=== PATIENT | male | born 1960 | race Caucasian/White ===

== ENCOUNTER 2016-06-11 19:22 | Inpatient (IN) | payer OTHER, MEDICARE ==
[~2016-06-11] VITALS: Ht 175.3 cm; Wt 117.0 kg
[~2016-06-11 19:22] MED LIST: ASPI-110 PO; COZA100T PO; FENO145T2 PO; GABA100C4 PO; NAPR550T3 PO; OXYC-395 PO; SOMA350T PO; ZOLP10TA3 PO
[2016-06-11 19:23] VITALS: BP 134/85; PULSE 94; RESP 20; TEMP 98.1; O2SAT 97
[2016-06-11] MEDS ORDERED: SODIUM CHLOR 0.9% 1000 ML INJ 1,000 ML IV SCH (20:24)
[2016-06-11] MEDS ORDERED: SODIUM CHLORIDE 0.9% FLUSH 5 ML FLUSH IVF PRN (20:30)
[2016-06-11] MEDS ORDERED: ONDANSETRON HCL 4 MG/2 ML VIAL IVP ONE (20:30)
[2016-06-11] MEDS ORDERED: HYDROmorphone HCL PF 1 MG/ML VIAL IM ONE (20:30)
--- NOTE | 2016-06-11 20:32 | PD ---
HPI Chief Complaint: Flank/Kidney Pain Time Seen by Provider: 20:22 Travel History International Travel<30 days: No Contact w/Intl Traveler<30days: No Traveled to known affect area: No History of Present Illness HPI 56-year-old male here for evaluation of left flank pain that started about 3 hours ago. The patient reports history of kidney stones and believes he may be passing a kidney stone today. Pain is sharp, severe, radiates to his left lower abdomen, constant, associated with nausea and vomiting. No hematuria or dysuria. No fevers or chills. History of appendectomy and umbilical hernia repair. PFSH Past Medical History Arthritis: No Asthma: No Autoimmune Disease: No Blood Disorders: No Heart Rhythm Problems: No Cancer: No Cardiovascular Problems: Yes (HTN) High Cholesterol: Yes Chemotherapy: No Chest Pain: No Congestive Heart Failure: No COPD: No Cerebrovascular Accident: No Diminished Hearing: No Endocrine: No Gastrointestinal Disorders: No GERD: No Glaucoma: No Genitourinary: No Headaches: No Hepatitis: No Hiatal Hernia: No Hypertension: Yes Immune Disorder: No Kidney Stones: No Musculoskeletal: Yes Neurologic: No Psychiatric: No Reproductive: No Respiratory: No Migraines: No Myocardial Infarction: No Radiation Therapy: No Renal Failure: No Seizures: No Sickle Cell Disease: No Sleep Apnea: No Ulcer: No Tetanus Vaccination: < 5 Years Past Surgical History Abdominal Surgery: Yes (HERNIA REPAIR) AICD: No Appendectomy: Yes Arteriovenous Shunt: No Body Medical Devices: CAGES IN BACK Cardiac Surgery: No Cholecystectomy: No Ear Surgery: No Endocrine Surgery: No Eye Surgery: No Genitourinary Surgery: No Gynecologic Surgery: No Insulin Pump: No Joint Replacement: No Oral Surgery: Yes Pacemaker: No Thoracic Surgery: No Other Surgery: Yes Social History Alcohol Use: Yes (2 DRINKS WEEKLY) Tobacco Use: No Substance Use: No Allergies-Medications (Allergen,Severity, Reaction): Coded Allergies: No Known Allergies (Verified , 06/11/16) Reported Meds & Prescriptions Reported Meds & Active Scripts Active Naproxen Sodium DS (Naproxen Sodium) 550 Mg Tab 550 Mg PO BID Reported Aspirin 81 (Aspirin) 81 Mg Tabdr 81 Mg PO DAILY Fenofibrate 145 Mg Tab 145 Mg PO HS Soma (Carisoprodol) 350 Mg Tab 350 Mg PO BID PRN Oxycodone (Oxycodone HCl) 10 Mg Tab 10 Mg PO Q6H PRN Zolpidem (Zolpidem Tartrate) 10 Mg Tab 10 Mg PO HS PRN Gabapentin 100 Mg Cap 400 Mg PO TID Cozaar (Losartan Potassium) 100 Mg Tab 100 Mg PO DAILY Review of Systems Except as stated in HPI: all other systems reviewed are Neg Physical Exam Narrative GENERAL: Well-developed, well-nourished, overweight, writhing in bed. SKIN: Warm and dry. No rash. HEAD: Atraumatic. Normocephalic. EYES: Pupils equal and round. No scleral icterus. No injection or drainage. ENT: Mucous membranes pink and moist. NECK: Trachea midline. No JVD. CARDIOVASCULAR: Regular rate and rhythm. RESPIRATORY: No accessory muscle use. Clear to auscultation. Breath sounds equal bilaterally. GASTROINTESTINAL: Abdomen soft, non-tender, nondistended. MUSCULOSKELETAL: No obvious deformities. No clubbing. No cyanosis. No edema. No midline vertebral step-off or tenderness. There is left CVA tenderness. No right CVA tenderness. NEUROLOGICAL: Awake and alert. No obvious cranial nerve deficits. Motor grossly within normal limits. Normal speech. PSYCHIATRIC: Appropriate mood and affect; insight and judgment normal. Data Data Last Documented VS Vital Signs Date Time Temp Pulse Resp B/P Pulse Ox O2 Delivery O2 Flow Rate FiO2 06/11/16 20:37 98 Room Air 06/11/16 19:23 98.1 94 20 134/85 Orders Urinalysis - C+S If Indicated (06/11/16 19:38) Complete Blood Count With Diff (06/11/16 20:24) Comprehensive Metabolic Panel (06/11/16 20:24) Prothrombin Time / Inr (Pt) (06/11/16 20:24) Act Partial Throm Time (Ptt) (06/11/16 20:24) Ct Abd/Pel W/O Iv Contrast (06/11/16 20:24) Iv Access Insert/Monitor (06/11/16 20:24) Ecg Monitoring (06/11/16 20:24) Oximetry (06/11/16 20:24) Ondansetron Inj (Zofran Inj) (06/11/16 20:30) Sodium Chlor 0.9% 1000 Ml Inj (Ns 1000 M (06/11/16 20:24) Sodium Chloride 0.9% Flush (Ns Flush) (06/11/16 20:30) Hydromorphone Pf Inj (Dilaudid Pf Inj) (06/11/16 20:30) Hydromorphone Pf Inj (Dilaudid Pf Inj) (06/11/16 21:00) Ketorolac Inj (Toradol Inj) (06/11/16 21:45) Tamsulosin (Flomax) (06/11/16 21:45) Hydromorphone Pf Inj (Dilaudid Pf Inj) (06/11/16 22:15) Labs Laboratory Tests Test 06/11/16 06/11/16 20:00 20:35 Urine Color YELLOW Urine Turbidity HAZY Urine pH 5.0 Urine Specific [place] 1.026 Urine Protein TRACE mg/dL Urine Glucose (UA) NEG mg/dL Urine Ketones NEG mg/dL Urine Occult Blood LARGE Urine Nitrite NEG Urine Bilirubin NEG Urine Urobilinogen LESS THAN 2.0 MG/DL Urine Leukocyte Esterase NEG Urine RBC /hpf Urine WBC 1 /hpf Urine Squamous Epithelial <1 /hpf Cells Microscopic Urinalysis Comment CULT NOT INDICATED White Blood Count 11.9 TH/MM3 Red Blood Count 4.87 MIL/MM3 Hemoglobin 13.9 GM/DL Hematocrit 40.9 % Mean Corpuscular Volume 84.1 FL Mean Corpuscular Hemoglobin 28.6 PG Mean Corpuscular Hemoglobin 34.0 % Concent Red Cell Distribution Width 13.9 % Platelet Count 259 TH/MM3 Mean Platelet Volume 7.6 FL Neutrophils (%) (Auto) 75.9 % Lymphocytes (%) (Auto) 16.6 % Monocytes (%) (Auto) 6.0 % Eosinophils (%) (Auto) 0.9 % Basophils (%) (Auto) 0.6 % Neutrophils # (Auto) 9.0 TH/MM3 Lymphocytes # (Auto) 2.0 TH/MM3 Monocytes # (Auto) 0.7 TH/MM3 Eosinophils # (Auto) 0.1 TH/MM3 Basophils # (Auto) 0.1 TH/MM3 CBC Comment DIFF FINAL Differential Comment Prothrombin Time 11.1 SEC Prothromb Time International 1.0 RATIO Ratio Activated Partial 25.2 SEC Thromboplast Time Sodium Level 141 MEQ/L Potassium Level 4.1 MEQ/L Chloride Level 107 MEQ/L Carbon Dioxide Level 25.2 MEQ/L Anion Gap 9 MEQ/L Blood Urea Nitrogen 23 MG/DL Creatinine 1.21 MG/DL Estimat Glomerular Filtration 62 ML/MIN Rate Random Glucose 130 MG/DL Calcium Level 8.6 MG/DL Total Bilirubin 0.2 MG/DL Aspartate Amino Transf 18 U/L (AST/SGOT) Alanine Aminotransferase 37 U/L (ALT/SGPT) Alkaline Phosphatase 66 U/L Total Protein 7.7 GM/DL Albumin 4.2 GM/DL MDM Medical Decision Making Medical Screen Exam Complete: Yes Emergency Medical Condition: Yes Differential Diagnosis Nephrolithiasis, ureterolithiasis, pyelonephritis, dissection, AAA, diverticulitis Narrative Course Vital signs show heart rate 94, pressure 134/85, pulse ox 97% on room air, oral temp of 98.1F. CBC is unremarkable. CMP is remarkable for BUN 23, cranny 1.20, GFR 62, random glucose 1:30, otherwise unremarkable. UA shows hazy urine, large occult blood, not suggestive of UTI. CT abdomen pelvis: CONCLUSION: 1. 3 mm stone in the proximal left ureter at the level of L3/L4 causing mild to moderate acute obstructive uropathy. I don't clearly see the calculus on the initial microsoft dynamics developer radiograph 2. Fatty liver again noted. The patient was initially given IM Dilaudid 1 mg after my assessment and given a dose of IV Dilaudid 1 mg after IV was established. He was still complaining of significant pain. He was then given IV Toradol with some improvement in pain. He was given another dose of IV Dilaudid 1 mg. Patient was also given a dose of Flomax. He still feeling a moderate amount of pain in his left flank. Given intractable pain, he'll be admitted for overnight observation. Case discussed with [facility] hospitalist EMILY Lobo. The patient will be admitted to their service under Dr. Israel. Diagnosis Primary Impression: Ureterolithiasis Additional Impression: Intractable pain Admitting Information Admitting Physician Requests: Observation Ko Krueger MD Jun 11, 2016 20:32
[2016-06-11 20:37] VITALS: O2SAT 98
[2016-06-11 20:55] LABS: BLOOD, URINE LARGE (NEG); COMMENT (UR) CULT NOT INDICATED; CULTURE IF INDICATED CULT NOT INDICATED; GLUCOSE,URINE NEG (NEG); KETONE, URINE NEG (NEG); NITRITE,URINE NEG (NEG); SQUAMOUS EPITHELIAL CELL URINE <1 /hpf (0-5); URINE COLOR YELLOW (YELLW/STRAW)
[2016-06-11 20:56] LABS: BASOPHIL # 0.1 TH/MM3 (0-0.2); BASOPHIL % 0.6 % (0.0-2.0); EOSINOPHIL # 0.1 TH/MM3 (0-0.4); EOSINOPHIL % 0.9 % (0.0-4.0); HEMATOCRIT 40.9 % (39.0-51.0); HEMO FLAGS DIFF FINAL; LYMPH % 16.6 % (9.0-44.0); MEAN CELL VOLUME 84.1 FL (80.0-100.0); MEAN CORPUSCULAR HEMOGLOBIN 28.6 PG (27.0-34.0); NEUT % 75.9 % (16.0-70.0); PLATELET COUNT 259 TH/MM3 (150-450); RED BLOOD COUNT 4.87 MIL/MM3 (4.50-5.90); RED CELL DISTRIBUTION WIDTH 13.9 % (11.6-17.2); WHITE BLOOD COUNT 11.9 TH/MM3 (4.0-11.0)
[2016-06-11] MEDS ORDERED: HYDROmorphone HCL PF 1 MG/ML VIAL IV PUSH ONE ×2 (21:00→22:15)
[2016-06-11 21:02] LABS: APTT (PATIENT) 25.2 SEC (24.3-30.1); PROTHROMBIN TIME - PATIENT 11.1 SEC (9.8-11.6)
--- NOTE | 2016-06-11 21:16 | RADRPT ---
EXAM DATE/TIME: 06/11/2016 20:46 [facility] COMPARISON: CT ABDOMEN & PELVIS W/O CONTRAST, March 06, 2014, 4:51. INDICATIONS : Left sided flank pain; possible renal calculi. ORAL CONTRAST: No oral contrast ingested. RADIATION DOSE: 8.56 CTDIvol (mGy) MEDICAL HISTORY : Hypertension. Hernia. Renal calculi. SURGICAL HISTORY : Appendectomy. Hernia repair. ENCOUNTER: Initial ACUITY: 1 day PAIN SCALE: 10/10 LOCATION: Left flank Abdomen/pelvis TECHNIQUE: Volumetric scanning of the abdomen and pelvis was performed. Using automated exposure control and ad justment of the mA and/or kV according to patient size, radiation dose was kept as low as reasonably achievable to obtain optimal diagnostic quality images. FINDINGS: LOWER LUNGS: The visualized lower lungs are clear. LIVER: Mild fatty infiltrated. SPLEEN: Normal size without lesion. PANCREAS: Within normal limits. KIDNEYS: There is a 3 mm stone in the proximal left ureter near the level of L3/L4. There is associated mild t o moderate hydronephrosis. No renal calculus, ureteral calculus or hydronephrosis on the right. ADRENAL GLANDS: Within normal limits. VASCULAR: There is no aortic aneurysm. BOWEL/MESENTERY: The stomach, small bowel, and colon demonstrate no acute abnormality. There is no free intraperitone al air or fluid. ABDOMINAL WALL: Within normal limits. RETROPERITONEUM: There is no lymphadenopathy. BLADDER: No wall thickening or mass. REPRODUCTIVE: Within normal limits. INGUINAL: There is no lymphadenopathy or hernia. MUSCULOSKELETAL: Within normal limits for patient age. CONCLUSION: 1. 3 mm stone in the proximal left ureter at the level of L3/L4 causing mild to moderate acute obstru ctive uropathy. I don't clearly see the calculus on the initial airborne mission systems radiograph 2. Fatty liver again noted. Bryson Gonzalez MD on June 11, 2016 at 21:11 Board Certified Radiologist. This report was verified electronically.
[2016-06-11 21:17] LABS: ANION GAP 9 MEQ/L (5-15); AST (GOT) 18 U/L (15-37); BICARBONATE 25.2 MEQ/L (21.0-32.0); BLOOD UREA NITROGEN 23 MG/DL (7-18); CHLORIDE 107 MEQ/L (98-107); GLOMERULAR FILTRATION RATE 62 ML/MIN (>89); POTASSIUM 4.1 MEQ/L (3.5-5.1); SODIUM (NA) 141 MEQ/L (136-145)
[2016-06-11 21:20] LABS: ALKALINE PHOSPHATASE 66 U/L (45-117); ALT (GPT) 37 U/L (12-78); TOTAL BILIRUBIN ADULT 0.2 MG/DL (0.2-1.0)
[2016-06-11] MEDS ORDERED: KETOROLAC TROMETHAMINE 30 MG/ML (IVP) VIAL IV PUSH ONE (21:45)
[2016-06-11] MEDS ORDERED: TAMSULOSIN HCL 0.4 MG CAP PO ONE (21:45)
[2016-06-11] MEDS ORDERED: NALOXONE HCL 0.4 MG/ML AMP IV PRN (23:00)
[2016-06-11] MEDS ORDERED: SODIUM CHLORIDE 0.9% FLUSH 5 ML FLUSH FLUSH PRN (23:00)
[2016-06-11] MEDS ORDERED: ONDANSETRON HCL 4 MG/2 ML VIAL IVP PRN (23:00)
[2016-06-11] MEDS ORDERED: KETOROLAC TROMETHAMINE 30 MG/ML (IVP) VIAL IVP PRN (23:00)
[2016-06-11] MEDS ORDERED: ACETAMINOPHEN 325 MG TAB PO PRN (23:00)
[2016-06-12 00:45] VITALS: BP 131/78; PULSE 107; RESP 19; TEMP 96.4; O2SAT 96
[2016-06-12] MEDS: SODIUM CHLOR 0.9% 1000 ML INJ 1,000 ML IV SCH ×3 (00:51→21:40)
[2016-06-12] MEDS: MORPHINE SULFATE 4 MG/ML INJ IV PRN ×2 (01:43→04:44)
[2016-06-12 04:00] VITALS: BP 128/64; PULSE 102; RESP 18; TEMP 97.6; O2SAT 94
[2016-06-12 07:08] LABS: AUTOMATED NEUTROPHIL # 8.3 TH/MM3 (1.8-7.7); BASOPHIL # 0.1 TH/MM3 (0-0.2); BASOPHIL % 0.5 % (0.0-2.0); EOSINOPHIL % 0.4 % (0.0-4.0); HEMATOCRIT 39.9 % (39.0-51.0); HEMO FLAGS DIFF FINAL; LYMPH % 15.7 % (9.0-44.0); LYMPHOCYTE # 1.8 TH/MM3 (1.0-4.8); MEAN CELL VOLUME 84.7 FL (80.0-100.0); MEAN CORPUSCULAR HGB CONC 33.1 % (32.0-36.0); MONO % 9.1 % (0.0-8.0); NEUT % 74.3 % (16.0-70.0); PLATELET COUNT 254 TH/MM3 (150-450); RED BLOOD COUNT 4.71 MIL/MM3 (4.50-5.90); WHITE BLOOD COUNT 11.2 TH/MM3 (4.0-11.0)
[2016-06-12 07:30] VITALS: BP 151/80; PULSE 98; RESP 20; TEMP 96.6; O2SAT 95
[2016-06-12 07:33] LABS: BICARBONATE 25.2 MEQ/L (21.0-32.0); POTASSIUM 3.8 MEQ/L (3.5-5.1)
[2016-06-12] MEDS ORDERED: HYDROmorphone HCL PF 1 MG/ML VIAL IV PUSH ONE (08:30)
[2016-06-12] MEDS: SODIUM CHLORIDE 0.9% FLUSH 5 ML FLUSH FLUSH SCH ×2 (09:00→21:41)
[2016-06-12] MEDS ORDERED: PNEUMOCOCCAL POLYVALENT INJ 25 MCG/0.5 ML SYR IM ONE (09:00)
[2016-06-12 11:00] VITALS: BP 138/77; PULSE 93; RESP 20; TEMP 96.9; O2SAT 95
--- NOTE | 2016-06-12 11:28 | MH ---
cc: JOSE FRANCISCO ISRAEL MD DATE OF ADMISSION: 06/11/2016 INTERNATIONAL TRAVEL None in the last 30 days. HISTORY OF PRESENT ILLNESS This is a pleasant 56 year-old white male who is here in the hospital with his fourth event of kidney stones. Yesterday, three hours before coming to the ER, he began having left flank pain that radiated into his back. He states now the pain is in his left lower quadrant and left flank still radiating into his back. His pain is sharp, severe, waxes and anes. He did have some nausea, but no emesis. The patient denies any headaches, chest pain, or shortness of breath. He denies any hematuria or dysuria. The patient states that he has been able to pass his stones before and would like to be strongly considered for this to be allowed at this point. The patient did have multiple pain meds in the ER and finally got some relief after the third or fourth dose of medicine. Urine is seen in the urinal which appears to be yellow and clear approximately 200 cc per void. The patient does seem to be slightly anxious over this current hospital admission. is at his bedside supporting him through his stay. The patient denies any chills or fever. The patient denies any diarrhea and states that his bowels move normally within the last 24-hours. PAST MEDICAL HISTORY Includes: 1. Kidney stones times three events. 2. Hyperlipidemia 3. Hypertension 4. Degenerative disc disease which has caused his disability. 5. Arthritis 6. Acute on chronic pain PAST SURGICAL HISTORY 1. Hernia repair 2. Appendectomy 3. Back surgery including cages in his back 4. Oral surgery ALLERGIES No known drug allergies. FAMILY HISTORY Dementia, COPD, pneumonia. SOCIAL HISTORY The patient is , currently lives in his home with his . He denies any tobacco use. No illicit drug use. Positive for alcohol use approximately two drinks weekly. HOME MEDICATIONS Include: 1. Naproxen 550 mg p.o. twice a day as needed 2. Aspirin 81 mg daily 3. Fenofibrate 145 mg tab at h.s. 4. Soma 350 mg tab twice a day as needed 5. Oxycodone 10 mg tab q6 as needed 6. Ambien 10 mg at h.s. as needed 7. Gabapentin 400 mg three times a day 8. Cozaar 100 mg p.o. daily REVIEW OF SYSTEMS A 12-point review was done with unremarkable findings and systems reviewed were negative. PHYSICAL EXAM GENERAL: This is a well-developed, well-nourished, obese male resting in the bed, alert, oriented and a good historian. SKIN: Skin is warm and dry. No rash is noted. HEAD, EYES, EARS, NOSE, AND THROAT: Atraumatic, normocephalic. Pupils are 2 mm and equal and round, PERRLA. No icterus. No drainage. Mucus membranes are pink, slightly dry. NECK: Supple. Trachea is midline. No JVD. CARDIOVASCULAR: Regular rate and rhythm. No murmurs, rubs or gallops audible. No pedal edema. RESPIRATORY: Lungs are clear to auscultation anteriorly and posteriorly with equal sounds bilateral. No wheezes, rales or rhonchi. GASTROINTESTINAL: Abdomen is obese, soft, nontender and nondistended. MUSCULOSKELETAL: He moves extremities with purpose. He has no cyanosis. No clubbing. No edema. His pulses are 3+/4+ intact. He has no CVA tenderness on the left or the right. NEUROLOGIC: He is alert and awake times four. Equal hand search director. Sensory and motor is within normal limits. Speech is clear. PSYCHIATRIC: Mild anxiety noted, but insight and judgment is normal. LABORATORY DATA CBC count done on 06/12/2016 white count is 11.2 which is down from 11.9 on 06/11/2016. RBC 4.71, hemoglobin 13.2, hematocrit 39.9, platelet count 254, neutrophil percent auto was 74.3, mono percent auto 9.1, PT-INR is 1. Chemistry on 06/12/2016 sodium 142, potassium 3.8, chloride 108, BUN 23, creatinine 1.37 which is elevated from yesterday at 1.21, GFR 54, calcium 8.2, glucose 88. Urine is yellow, hazy, pH is 5, specific gravity 1.026, trace of protein, negative glucose, negative ketones, large amount of occult blood, negative for bilirubins or nitrites. Culture is not indicated at this time. IMAGING Shows a CT of the abdomen and pelvis, a 1.3 mm stone is in the proximal left ureter at the level of C3, C4 causing mild to moderate acute obstructive neuropathy. There is no clear calculous. I do not see the calculous on the initial forestry tree pruner radiograph, fatty liver noted. ASSESSMENT AND PLAN 1. Left ureterolithiasis 2. Intractable pain with acute on chronic pain 3. Hypertension 4. History of hyperlipidemia 5. Degenerative disc disease Our plan is to get a urology consult which is in place. Vital signs are q4. Bedrest with bathroom privileges. The patient is to call for assistance for safety reasons. NPO for now. Continue gentle hydration with IV fluids. Reconcile his medications. Pain management which may require IV, as well as p.o. meds. Monitor his labs including a CBC and BMP for in the morning. We will wait for the expert opinion of nephrology as the patient is requesting time to pass the stone. The patient is full code, full aggressive care. The patient will strain his urine and void in the urinal if at all possible. Dictated by JAGDEEP Cha MD CAROLINA Olsen/MATTHEW /9:41 AM /11:26 AM PT IS SEEN & eXAMINED D/W PT D/W JODY [place] ORDERS SEE H&P WILL F/U Jose Francisco Israel MD Jun 12, 2016 16:40 MTDD
[2016-06-12] MEDS: HYDROmorphone HCL PF 1 MG/ML VIAL IV PUSH PRN ×3 (12:42→21:41)
[2016-06-12] MEDS ORDERED: traMADol/ACETAMINOPHEN 37.5/325 1 TAB PO PRN (13:00)
--- NOTE | 2016-06-12 13:38 | MB ---
cc: BALA WHITE MD DATE OF CONSULTATION 06/12/2016 REASON FOR CONSULTATION 1. Left proximal ureteral stone with mild hydronephrosis 2. Left flank pain. HISTORY OF PRESENT ILLNESS The patient is a pleasant 56-year-old white male with a history of kidney stones who presented to the ER with acute onset of severe left flank pain radiating to his back 13/10. He describes his pain as sharp and severe similar to his kidney stone pain in the past. He has had three other episodes of stones in the past all of which he has passed on his own. He denied any fevers, chills, nausea, vomiting, dysuria, or hematuria at that time. He is urgently against admission, however, his pain was so severe that he agreed to be admitted, but would strongly concerned and would like to try and pass the stone. He did receive multiple IVP pain meds in the ER which helped give him relief of his pain. In the ER, he had a CT of the abdomen and pelvis without contrast done which showed a 3 mm left proximal ureteral stone with mild hydronephrosis. He was subsequently admitted for pain control and observation. He denies a history of urinary tract infections or any family history of prostate cancer. Currently his pain is improved at a 6/10. PAST HISTORY History includes: 1. kidney stones x3 2. Hyperlipidemia 3. Hypertension 4. Degenerative disc disease on chronic opioids. 5. Arthritis PAST SURGICAL HISTORY 1. Status post hernia repair 2. Appendectomy 3. Back surgery 4. Oral surgery ALLERGIES NO KNOWN DRUG ALLERGIES. FAMILY HISTORY Negative for urolithiasis, negative for genitourinary disease. SOCIAL HISTORY The patient is . Currently lives at home with his . Denies any tobacco use or illicit drugs. He uses occasional alcohol of two drinks a week MEDICATIONS Home medications include: 1. Naproxen 500 mg p.o. b.i.d. 2. Aspirin 81 mg daily 3. Fenofibrate under 150 mm tablet daily 4. Soma 300 mg twice a day 5. Oxycodone 10 mg q6 has needed for chronic back pain. 6. Ambien 10 mg at night 7. Gabapentin 400 mg three times a day 8. Cozaar 100 mg p.o. daily REVIEW OF SYSTEMS See HPI, all other review of systems reviewed otherwise were negative. PHYSICAL EXAMINATION VITAL SIGNS: His temperature was 96.6, pulse 98, respiratory 20, BP 151/80, pulse ox 95% on room air. GENERAL: He is alert and oriented x3 in no apparent distress, pleasant, cooperative and appears his stated age. HEAD: Normocephalic, atraumatic. EYES: No scleral icterus. External ocular muscles intact. NECK: Supple. Trachea is midline. No JVD. LUNGS: Clear to auscultation bilaterally. No wheezes, rales or rhonchi. HEART: Regular rate and rhythm. ABDOMEN: Soft, nontender and nondistended. Positive bowel sounds. GENITOURINARY; No CVA tenderness bilaterally. His penis is circumcised. Testes descended bilaterally, normal in size and consistency. Prostate exam not indicated at this time. EXTREMITIES: Nontender. No clubbing, cyanosis or edema. MUSCULOSKELETAL: Full range of motion x4. SKIN: No ulcers or rashes. PSYCH: Normal affect. LABS Labs show a white count of 11.2, hemoglobin 13.2, hematocrit 39.9, platelet count 254. Sodium 142, potassium 3.0, chloride 108, bicarb 25.2, BUN 20, creatinine 1.37, calcium 8.2. His urine showed pH of 5.0 with specific gravity 1.026, negative nitrate, negative leukocyte esterase. IMAGING STUDIES CT of the abdomen and pelvis without contrast images were reviewed and agreed with radiologist's report. He has a 3 mm proximal left ureteral stone with mild hydronephrosis. ASSESSMENT AND PLAN The patient is a 56-year-old male with a history of kidney stones who presented with acute onset of left flank pain and was found to have a 3 mm left proximal stone with mild hydronephrosis. I think the patient warrants a trial of passage. We will start him on Flomax, strain his urine and push fluids. We will add Tramadol and acetaminophen for his pain control. As long as his symptoms do not worsened, he can be sent terrance and managed on an outpatient basis a trial of pasage. He will eventually need a metabolic workup. Since he is in hospital at this time, we will check his parathyroid hormone, his uric acid and vitamin D. Thank you for this consult. Please call with any questions. Bala White MD EMF/MATTHEW /12:56 PM /1:24 PM
[2016-06-12] MEDS: TAMSULOSIN HCL 0.4 MG CAP PO SCH (15:15)
[2016-06-12 15:30] VITALS: BP 155/78; PULSE 104; RESP 20; TEMP 97.2; O2SAT 94
--- NOTE | 2016-06-12 16:40 | HHI.PR ---
Objective Objective Results - Vital Signs Date Time Temp Pulse Resp B/P Pulse Ox O2 Delivery O2 Flow Rate FiO2 06/12/16 15:30 97.2 104 20 155/78 94 06/12/16 11:00 96.9 93 20 138/77 95 06/12/16 07:30 96.6 98 20 151/80 95 06/12/16 04:00 97.6 102 18 128/64 94 06/12/16 00:45 96.4 107 19 131/78 96 06/11/16 20:37 98 Room Air 06/11/16 19:23 98.1 94 20 134/85 97 Room Air I/O 06/11/16 06/11/16 06/11/16 06/12/16 06/12/16 06/12/16 07:00 15:00 23:00 07:00 15:00 23:00 Intake Total 530 ml Balance 530 ml Intake Oral 0 ml IV Total 530 ml # Voids 1 # Bowel Movements 0 Result Diagram: 06/12/16 0620 06/12/16 0620 Other Results Laboratory Tests Test 06/11/16 06/11/16 06/12/16 20:00 20:35 06:20 Urine Color YELLOW Urine Turbidity HAZY Urine pH 5.0 Urine Specific [place] 1.026 Urine Protein TRACE Urine Glucose (UA) NEG Urine Ketones NEG Urine Occult Blood LARGE Urine Nitrite NEG Urine Bilirubin NEG Urine Urobilinogen LESS THAN 2.0 Urine Leukocyte Esterase NEG Urine RBC Urine WBC 1 Urine Squamous Epithelial <1 Cells Microscopic Urinalysis Comment CULT NOT INDICATED White Blood Count 11.9 11.2 Red Blood Count 4.87 4.71 Hemoglobin 13.9 13.2 Hematocrit 40.9 39.9 Mean Corpuscular Volume 84.1 84.7 Mean Corpuscular Hemoglobin 28.6 28.0 Mean Corpuscular Hemoglobin 34.0 33.1 Concent Red Cell Distribution Width 13.9 14.0 Platelet Count 259 254 Mean Platelet Volume 7.6 7.4 Neutrophils (%) (Auto) 75.9 74.3 Lymphocytes (%) (Auto) 16.6 15.7 Monocytes (%) (Auto) 6.0 9.1 Eosinophils (%) (Auto) 0.9 0.4 Basophils (%) (Auto) 0.6 0.5 Neutrophils # (Auto) 9.0 8.3 Lymphocytes # (Auto) 2.0 1.8 Monocytes # (Auto) 0.7 1.0 Eosinophils # (Auto) 0.1 0.0 Basophils # (Auto) 0.1 0.1 CBC Comment DIFF FINAL DIFF FINAL Differential Comment Prothrombin Time 11.1 Prothromb Time International 1.0 Ratio Activated Partial 25.2 Thromboplast Time Sodium Level 141 142 Potassium Level 4.1 3.8 Chloride Level 107 108 Carbon Dioxide Level 25.2 25.2 Anion Gap 9 9 Blood Urea Nitrogen 23 23 Creatinine 1.21 1.37 Estimat Glomerular Filtration 62 54 Rate Random Glucose 130 88 Calcium Level 8.6 8.2 Total Bilirubin 0.2 Aspartate Amino Transf 18 (AST/SGOT) Alanine Aminotransferase 37 (ALT/SGPT) Alkaline Phosphatase 66 Total Protein 7.7 Albumin 4.2 Physical Exam Physical Exam PT IS SEEN & eXAMINED D/W PT D/W JODY SEE ORDERS SEE H&P WILL F/U Tracy Israel MD Jun 12, 2016 16:40
[2016-06-12] MEDS: traMADol/ACETAMINOPHEN 37.5/325 1 TAB PO SCH ×2 (17:17→23:01)
[2016-06-12 20:00] VITALS: BP 134/67; PULSE 86; RESP 18; TEMP 96.8; O2SAT 96
[2016-06-12] MEDS: GABAPENTIN 100 MG CAP PO SCH (20:11)
[2016-06-12] MEDS: ZOLPIDEM TARTRATE 10 MG TAB PO PRN (23:01)
[2016-06-13] VITALS (7 sets, daily range): BP systolic 120–207; BP diastolic 70–111; PULSE 77–96; RESP 17–18; TEMP 97.6–98; O2SAT 94–96
[2016-06-13] MEDS: HYDROmorphone HCL PF 1 MG/ML VIAL IV PUSH PRN ×4 (03:54→20:48)
[2016-06-13] MEDS: traMADol/ACETAMINOPHEN 37.5/325 1 TAB PO SCH ×6 (03:54→23:06)
[2016-06-13] MEDS: SODIUM CHLOR 0.9% 1000 ML INJ 1,000 ML IV SCH ×3 (07:15→18:30)
[2016-06-13] MEDS: GABAPENTIN 100 MG CAP PO SCH ×3 (08:22→18:20)
[2016-06-13] MEDS: ASPIRIN EC 81 MG TABEC PO SCH (08:23)
[2016-06-13] MEDS: LOSARTAN 50 MG TAB PO SCH (08:23)
[2016-06-13] MEDS: TAMSULOSIN HCL 0.4 MG CAP PO SCH (08:23)
[2016-06-13] MEDS: SODIUM CHLORIDE 0.9% FLUSH 5 ML FLUSH FLUSH SCH ×2 (08:24→21:02)
[2016-06-13 08:30] LABS: HEMATOCRIT 37.1 % (39.0-51.0); MEAN CELL VOLUME 85.6 FL (80.0-100.0); MEAN CORPUSCULAR HEMOGLOBIN 28.5 PG (27.0-34.0); MEAN CORPUSCULAR HGB CONC 33.3 % (32.0-36.0); PLATELET COUNT 215 TH/MM3 (150-450); RED BLOOD COUNT 4.33 MIL/MM3 (4.50-5.90); RED CELL DISTRIBUTION WIDTH 13.8 % (11.6-17.2); REVIEW FLAG FINAL; WHITE BLOOD COUNT 9.1 TH/MM3 (4.0-11.0)
[2016-06-13 08:37] LABS: BICARBONATE 28.6 MEQ/L (21.0-32.0); POTASSIUM 3.6 MEQ/L (3.5-5.1)
--- NOTE | 2016-06-13 15:25 | HHI.PR ---
Subjective Remarks Lt flank pain Appetite good. No headache back pain No nausea/vomiting Objective Objective Results - Vital Signs Date Time Temp Pulse Resp B/P Pulse Ox O2 Delivery O2 Flow Rate FiO2 06/13/16 12:00 97.7 77 18 149/91 96 06/13/16 08:00 97.7 81 18 120/76 94 06/13/16 04:54 18 06/13/16 04:54 18 06/13/16 04:00 97.9 88 18 138/70 95 06/13/16 00:00 97.9 94 17 132/80 95 06/12/16 21:41 18 06/12/16 20:00 96.8 86 18 134/67 96 06/12/16 15:30 97.2 104 20 155/78 94 I/O 06/12/16 06/12/16 06/12/16 06/13/16 06/13/16 06/13/16 07:00 15:00 23:00 07:00 15:00 23:00 Intake Total 530 ml 0 ml 1900 ml 900 ml 603 ml Output Total 400 ml 1280 ml 1375 ml Balance 530 ml -400 ml 620 ml 900 ml -772 ml Intake Oral 0 ml 0 ml IV Total 530 ml 1900 ml 900 ml 603 ml Output Urine Total 400 ml 1280 ml 1375 ml Stool Total 0 ml # Voids 1 3 # Bowel Movements 0 Result Diagram: 06/13/1672506/13/16 07 Other Results Last Impressions Abdomen/Pelvis CT 06/11/162023 Signed Impressions: Service Date/Time: May 20:46 - CONCLUSION: 1. 3 mm stone in the proximal left ureter at the level of L3/L4 causing mild to moderate acute obstructive uropathy. I don't clearly see the calculus on the initial mold breaker radiograph 2. Fatty liver again noted. Bryson Gonzalez MD ROS General: Other (10 point ROS done. Positive findings include dysuria, and stream interruption of urine.) /SOFT TILE SETTER: Dysuria, Other (interruption of urinary stream while voiding.) Physical Exam Physical Exam PHYSICAL EXAMINATION GENERAL: This is a well-developed, well-nourished obese male who appears to be mild distress. He is alert and awake, X 4. Good historian HEAD: Normocephalic without any lesion or mass noted. Facial features appear symmetric. OROPHARYNGEAL: Oropharynx without erythema or edema. NECK: Supple. No nuchal rigidity or lymphadenopathy. Trachea midline without deviation. CARDIAC: Regular rhythm, regular rate, S1 and S2 are heard. Murmur none; no gallops or rubs. LUNGS: Clear to auscultation bilaterally. [place], rhonchi or rale. No use of accessory muscles on inspiration or expiration. ABDOMEN: taut, nontender, no organomegaly or masses. Bowel sounds are heard in all four quadrants. No rebound. No guarding. EXTREMITIES: No edema. Pulses equal bilateral. No cyanosis. NEUROLOGICAL: Patient mood and affect appropriate. No focal deficit SKIN:Warm and moist,dry Objective Remarks Im still hurting off and on and requiring IV and PO meds. A/P Assessment and Plan ASSESSMENT AND PLAN 1. Left ureterolithiasis 2. Intractable pain with acute on chronic pain 3. Hypertension 4. History of hyperlipidemia 5. Degenerative disc disease Our plan is to get a urology consult which is in place. Vital signs are q4. Bedrest with bathroom privileges. The patient is to call for assistance for safety reasons. Continue gentle hydration with IV fluids. Regular diet ordered. Eating with no problem. medications monitored. Pain management which is still requiring IV, as well as p.o. meds. Monitor his labs as warranted. States pain is moving from posterior left flank to anterior left flank. Appreciate expert opinion of nephrology as the patient is requesting time to pass the stone. The patient is full code, full aggressive care. The patient will strain his urine and void in the urinal if at all possible. No stone has been seen as of yet. Patient states his pain is still present but not as intense. He is stating that his stream of urine is interrupted when voiding , and will start back. We are hopeful for discharge in a.m. if pain continues to be lessened. Dictated by JAGDEEP Cha Discharge Planning home in am with . Discussed With: Nurse, Other (patient, and Dr. Israel. Patient was seen on his behalf. ) Candida Branch Jun 13, 2016 15:25
[2016-06-13] MEDS ORDERED: POLYETHYLENE GLYCOL 17 GM PKG PO SCH (15:30)
[2016-06-13] MEDS ORDERED: cloNIDine HCL 0.1 MG TAB PO PRN (17:00)
[2016-06-13] MEDS: DOCUSATE SODIUM 100 MG CAP PO SCH (20:56)
[2016-06-13] MEDS: ZOLPIDEM TARTRATE 10 MG TAB PO PRN (23:09)
[2016-06-14] VITALS: BP 146/79; PULSE 90; RESP 19; TEMP 97; O2SAT 96
[2016-06-14] MEDS: HYDROmorphone HCL PF 1 MG/ML VIAL IV PUSH PRN ×3 (00:41→09:02)
[2016-06-14] MEDS: SODIUM CHLOR 0.9% 1000 ML INJ 1,000 ML IV SCH (02:30)
[2016-06-14] MEDS: traMADol/ACETAMINOPHEN 37.5/325 1 TAB PO SCH ×3 (02:55→10:00)
[2016-06-14 04:00] VITALS: BP 151/65; PULSE 86; RESP 19; TEMP 98; O2SAT 96
[2016-06-14 08:00] VITALS: BP 152/84; PULSE 88; RESP 18; TEMP 98; O2SAT 94
[2016-06-14] MEDS ORDERED: POLYETHYLENE GLYCOL 17 GM PKG PO SCH (09:00)
[2016-06-14] MEDS: GABAPENTIN 100 MG CAP PO SCH ×2 (09:01→12:37)
[2016-06-14] MEDS: LOSARTAN 50 MG TAB PO SCH (09:01)
[2016-06-14] MEDS: SODIUM CHLORIDE 0.9% FLUSH 5 ML FLUSH FLUSH SCH (09:01)
[2016-06-14] MEDS: DOCUSATE SODIUM 100 MG CAP PO SCH (09:01)
[2016-06-14] MEDS: ASPIRIN EC 81 MG TABEC PO SCH (09:02)
[2016-06-14] MEDS: TAMSULOSIN HCL 0.4 MG CAP PO SCH (09:02)
--- NOTE | 2016-06-14 11:08 | HHI.PR ---
Subjective History of Present Illness pt feels better now flank pain is better/parikh meds are helping passed small gravels No N/v No fever or chills good appetite ch back pain is ok/pain meds are helping offers no other c/o is at bedside Vitals/Results Intake & Output 06/13/16 06/13/16 06/14/16 15:00 23:00 07:00 Intake Total 1443 ml 480 ml 480 ml Output Total 1375 ml 1500 ml 1000 ml Balance 68 ml -1020 ml -520 ml Intake Oral 840 ml 480 ml 480 ml IV Total 603 ml Output Urine Total 1375 ml 1500 ml 1000 ml # Voids 5 # Bowel Movements 0 Vital Signs Vital Signs Date Time Temp Pulse Resp B/P Pulse Ox O2 Delivery O2 Flow Rate FiO2 06/14/16 08:00 98.0 88 18 152/84 94 06/14/16 06:41 19 06/14/16 04:25 19 06/14/16 04:25 19 06/14/16 04:00 98.0 86 19 151/65 96 06/14/16 00:00 97.0 90 19 146/79 96 06/13/16 20:00 97.6 92 18 167/79 96 06/13/16 19:13 160/88 06/13/16 16:45 98.0 96 18 207/111 94 06/13/16 12:00 97.7 77 18 149/91 96 CBC/BMP: 06/13/16 0726 06/13/16 0726 Physical Exam General General Appearance: No Acute Distress, Comfortable Eyes Eye Exam: Sclera White, Extraocular Movement Intact Ears & Nose Ears & Nose Exam: Nasal Mucosa [place] Throat Throat Exam: Oral Mucosa [place] & Moist Neck Neck Exam: Neck Supple, Trachea Midline Pulmonary Resp Exam: Clear Bilaterally, Breath Sounds Equal Cardiology CV Exam: Regular, Normal Sinus Rhythm Gastrointestinal/Abdomen GI Exam: Soft, Non-Tender, Bowel Sounds Present Integumentary Skin Exam: Warm, Dry Extremeties Extremities Exam: No Edema, Pedal Pulses Palpable Neurologic Neuro Exam: Alert, Awake, Oriented, Speech Clear, Moving All Extremities Psychiatric Psych Exam: Appropriate Responses Assessment/Plan Assessment/Plan ASSESSMENT AND PLAN . Left ureterolithiasis . recurrent renal stones . Intractable pain with acute on chronic pain . Hypertension . History of hyperlipidemia . Degenerative disc disease d/c IVF encourage po fluids d/c IV dilaudid cont po narcotic BP control cont current tx medically stable for d/c d/c home f.u urology as out pt basis counselled pt against chronic use of narcotics / risk were explained d/w PT's at bedside see orders see [facility] f/u pcp Tracy Israel MD Jun 14, 2016 11:08 Pain management which is still requiring IV, as well as p.o. meds. Monitor his labs as warranted. States pain is moving from posterior left flank to anterior left flank. Appreciate expert opinion of nephrology as the patient is requesting time to pass the stone. The patient is full code, full aggressive care. The Tracy Israel MD Jun 14, 2016 11:08
[2016-06-14 12:00] VITALS: BP 138/85; PULSE 86; RESP 18; TEMP 98.5; O2SAT 94
--- NOTE | 2016-06-14 17:02 | HHI.DS ---
Discharge Summary Admission Date Jun 13, 2016 at 15:09 Discharge Date: Jun 14, 2016 Admitting Diagnosis left ureterolithiasis with intractable pain Brief History This was a pleasant 56 year-old white male who was here in the hospital with his fourth event of kidney stones. Day before admission, three hours before coming to the ER, he began having left flank pain that radiated into his back. He states on admission the pain is in his left lower quadrant and left flank still radiating into his back. His pain is sharp, severe, waxes and wans. He did have some nausea, but no emesis. The patient denied any headaches, chest pain, or shortness of breath. He denied any hematuria or dysuria. The patient stated that he has been able to pass his stones before and would like to be strongly considered for these stones to pass on their own. CBC/BMP: 06/13/16 0726 06/13/16 0726 Significant Findings Laboratory Tests Test 06/11/16 06/11/16 06/12/16 06/13/16 20:00 20:35 06:20 07:26 Urine Turbidity HAZY (CLEAR) Urine Occult Blood LARGE (NEG) White Blood Count 11.9 TH/MM3 11.2 TH/MM3 (4.0-11.0) (4.0-11.0) Neutrophils (%) (Auto) 75.9 % 74.3 % (16.0-70.0) (16.0-70.0) Neutrophils # (Auto) 9.0 TH/MM3 8.3 TH/MM3 (1.8-7.7) (1.8-7.7) Blood Urea Nitrogen 23 MG/DL (7-18) 23 MG/DL (7-18) 19 MG/DL (7-18) Estimat Glomerular Filtration 62 ML/MIN (>89) 54 ML/MIN (>89) 73 ML/MIN (>89) Rate Random Glucose 130 MG/DL (74-106) Monocytes (%) (Auto) 9.1 % (0.0-8.0) Monocytes # (Auto) 1.0 TH/MM3 (0-0.9) Chloride Level 108 MEQ/L (98-107) Creatinine 1.37 MG/DL (0.60-1.30) Calcium Level 8.2 MG/DL 8.0 MG/DL (8.5-10.1) (8.5-10.1) Red Blood Count 4.33 MIL/MM3 (4.50-5.90) Hemoglobin 12.3 GM/DL (13.0-17.0) Hematocrit 37.1 % (39.0-51.0) Imaging Last Impressions Abdomen/Pelvis CT 06/11/162023 Signed Impressions: Service Date/Time: May 20:46 - CONCLUSION: 1. 3 mm stone in the proximal left ureter at the level of L3/L4 causing mild to moderate acute obstructive uropathy. I don't clearly see the calculus on the initial guest services ambassador radiograph 2. Fatty liver again noted. Bryson Gonzalez MD Hospital Course The patient did have multiple pain meds in the ER and finally got some relief after the third or fourth dose of medicine. Urine was seen in the urinal which appears to be yellow and clear approximately 200 cc per void on Day 1 The patient did seem to be slightly anxious over this current hospital admission. was at his bedside supporting him through his stay. The patient denied any chills or fever during hospital course. The patient denied any diarrhea and stated that his bowels move normally within the last 24-hours after admission. Urology consult was done. Patient was requesting time to pass the stone on his own without any procedures. Urine was strained during hospital stay. Vital signs were monitored q4 without any major issues. Bedrest with bathroom privileges followed and patient was able to walk around in room next day 2 safety was expained to patient for his activities. NPO first day. gentle hydration with IV fluids followed throughout hospital stay. On day 2, pain was lessening, and patient was requiring less meds for his comfort. He also stated the pain was moving to his lower abd. area, which is to easing things. No stone passed yet he stated, but he still felt he could pass on his own. Patient was able to manage pain with PO meds now. Labs and plan of care were stable for OP treatment. Will follow with PCP and GI. . The patient is full code, full aggressive care. Pt Condition on Discharge: Fair Discharge Disposition: Discharge Home Discharge Instructions DIET: Follow Instructions for: Heart Healthy Diet Additional Diet Instructions: take more po fluids Fluid Restrictions: none Activities you can perform: Regular-No Restrictions Other Activity Instructions: Strain urine. Candida Branch Jun 14, 2016 17:02
[2016-06-15] MEDS ORDERED: HYDR2TAB PO (10:42)
[2016-06-15] MEDS ORDERED: ZOFR4TAB3 SL (10:42)
[2016-06-15] MEDS ORDERED: NAPR500 PO (10:42)
== END 2016-06-14 14:01 | disposition home or self-care (01) | DRG 694 ==
LOC: NEPE 19:22 → NEDA 22:39 → HOCB 06-12 00:34 → OBSVTOIN 06-13 15:09
PROVIDERS: ADMIT Specialist; ATTEND Specialist
DX: N20.2 Calculus of kidney with calculus of ureter (principal); I10 Essential (primary) hypertension; E78.00 Pure hypercholesterolemia, unspecified; E78.5 Hyperlipidemia, unspecified; G89.29 Other chronic pain; M19.90 Unspecified osteoarthritis, unspecified site; Z79.891 Long term (current) use of opiate analgesic
CPT/HCPCS: 74176; 80048; 80053; 81001; 82652; 83970; 84550; 85025; 85027; 85610; 85730; 90732; 96361; 96372; 96374; 96375; 96376; G0378; J1170; J1885; J2270; J2405; J7030

== ENCOUNTER 2016-06-15 09:05 | Emergency (ER) | payer OTHER ==
[~2016-06-15] VITALS: Ht 175.3 cm; Wt 113.5 kg
[2016-06-15 09:09] VITALS: BP 160/103; PULSE 102; RESP 24; TEMP 98.1; O2SAT 95
[2016-06-15] MEDS ORDERED: HYDROmorphone HCL PF 1 MG/ML VIAL IV PUSH ONE (09:30)
[2016-06-15] MEDS ORDERED: KETOROLAC TROMETHAMINE 30 MG/ML (IVP) VIAL IV PUSH ONE (09:30)
[2016-06-15] MEDS ORDERED: HYDROmorphone HCL PF 2 MG/ML VIAL IV PUSH ONE (09:45)
[2016-06-15 09:47] VITALS: BP 159/95; PULSE 103; RESP 20; O2SAT 97
[2016-06-15 09:56] LABS: AUTOMATED NEUTROPHIL # 8.5 TH/MM3 (1.8-7.7); BASOPHIL # 0.1 TH/MM3 (0-0.2); BASOPHIL % 0.5 % (0.0-2.0); EOSINOPHIL # 0.2 TH/MM3 (0-0.4); EOSINOPHIL % 1.3 % (0.0-4.0); HEMATOCRIT 41.5 % (39.0-51.0); HEMO FLAGS DIFF FINAL; LYMPH % 15.2 % (9.0-44.0); LYMPHOCYTE # 1.7 TH/MM3 (1.0-4.8); MEAN CELL VOLUME 83.3 FL (80.0-100.0); MEAN CORPUSCULAR HEMOGLOBIN 28.2 PG (27.0-34.0); MEAN CORPUSCULAR HGB CONC 33.9 % (32.0-36.0); MONO % 8.7 % (0.0-8.0); NEUT % 74.3 % (16.0-70.0); PLATELET COUNT 261 TH/MM3 (150-450); RED BLOOD COUNT 4.98 MIL/MM3 (4.50-5.90); RED CELL DISTRIBUTION WIDTH 13.6 % (11.6-17.2); WHITE BLOOD COUNT 11.5 TH/MM3 (4.0-11.0)
[2016-06-15 10:28] VITALS: BP 141/75; PULSE 90; RESP 20; O2SAT 96
[2016-06-15 10:39] LABS: BICARBONATE 24.5 MEQ/L (21.0-32.0); POTASSIUM 3.7 MEQ/L (3.5-5.1)
[2016-06-15] MEDS ORDERED: HYDR2TAB PO (10:42)
[2016-06-15] MEDS ORDERED: NAPR500 PO (10:42)
[2016-06-15] MEDS ORDERED: ZOFR4TAB3 SL (10:42)
--- NOTE | 2016-06-15 10:42 | PD ---
HPI Chief Complaint: Flank/Kidney Pain Time Seen by Provider: 09:22 Travel History International Travel<30 days: No Contact w/Intl Traveler<30days: No Traveled to known affect area: No History of Present Illness HPI Is a 56-year-old man who presents to the emergency department complaining of left-sided flank pain. He was just discharged from the hospital. He is a known 3 mm proximal left ureteral calculus. He is on chronic opiates. States she was feeling improved on they sent him home. They did not send him home on any new pain medicines. No vomiting. No fevers. History Past Medical History Narrative Medical Kidney stones Hyperlipidemia Hypertension Chronic back pain, chronic opiate use Tetanus Vaccination: < 5 Years Influenza Vaccination: Yes Social History Alcohol Use: Yes (2 DRINKS WEEKLY) Tobacco Use: No Allergies-Medications (Allergen,Severity, Reaction): Coded Allergies: No Known Allergies (Verified , 06/15/16) Reported Meds & Prescriptions Reported Meds & Active Scripts Active Reported Aspirin 81 (Aspirin) 81 Mg Tabdr 81 Mg PO DAILY Fenofibrate 145 Mg Tab 145 Mg PO HS Soma (Carisoprodol) 350 Mg Tab 350 Mg PO BID PRN Oxycodone (Oxycodone HCl) 10 Mg Tab 10 Mg PO Q6H PRN Zolpidem (Zolpidem Tartrate) 10 Mg Tab 10 Mg PO HS PRN Gabapentin 100 Mg Cap 400 Mg PO TID Cozaar (Losartan Potassium) 100 Mg Tab 100 Mg PO DAILY Review of Systems Except as stated in HPI: all other systems reviewed are Neg Physical Exam Narrative GENERAL: 56 old man, appears uncomfortable, nontoxic. SKIN: Warm and dry. HEAD: Atraumatic. Normocephalic. CARDIOVASCULAR: Regular rate and rhythm. No murmur appreciated. RESPIRATORY: No accessory muscle use. Clear to auscultation. Breath sounds equal bilaterally. GASTROINTESTINAL: Abdomen soft, non-tender, nondistended. Hepatic and splenic margins not palpable. MUSCULOSKELETAL: No obvious deformities. No clubbing. No cyanosis. No edema. NEUROLOGICAL: Awake and alert. No obvious cranial nerve deficits. Motor grossly within normal limits. Normal speech. PSYCHIATRIC: Appropriate mood and affect; insight and judgment normal. Data Data Last Documented VS Vital Signs Date Time Temp Pulse Resp B/P Pulse Ox O2 Delivery O2 Flow Rate FiO2 06/15/16 10:28 90 20 141/75 96 Room Air 06/15/16 09:09 98.1 Orders Complete Blood Count With Diff (06/15/16 09:22) Basic Metabolic Panel (Bmp) (06/15/16 09:22) Abdomen, Kub Only (06/15/16 ) Iv Access Insert/Monitor (06/15/16 09:22) Hydromorphone Pf Inj (Dilaudid Pf Inj) (06/15/16 09:30) Ketorolac Inj (Toradol Inj) (06/15/16 09:30) Hydromorphone Pf Inj (Dilaudid Pf Inj) (06/15/16 09:45) Labs Laboratory Tests Test 06/15/16 09:35 White Blood Count 11.5 TH/MM3 Red Blood Count 4.98 MIL/MM3 Hemoglobin 14.0 GM/DL Hematocrit 41.5 % Mean Corpuscular Volume 83.3 FL Mean Corpuscular Hemoglobin 28.2 PG Mean Corpuscular Hemoglobin 33.9 % Concent Red Cell Distribution Width 13.6 % Platelet Count 261 TH/MM3 Mean Platelet Volume 7.6 FL Neutrophils (%) (Auto) 74.3 % Lymphocytes (%) (Auto) 15.2 % Monocytes (%) (Auto) 8.7 % Eosinophils (%) (Auto) 1.3 % Basophils (%) (Auto) 0.5 % Neutrophils # (Auto) 8.5 TH/MM3 Lymphocytes # (Auto) 1.7 TH/MM3 Monocytes # (Auto) 1.0 TH/MM3 Eosinophils # (Auto) 0.2 TH/MM3 Basophils # (Auto) 0.1 TH/MM3 CBC Comment DIFF FINAL Differential Comment [facility] Medical Decision Making Medical Screen Exam Complete: Yes Emergency Medical Condition: Yes Interpretation(s) LABS: CBC unremarkable BMP Differential Diagnosis Left renal lithiasis Narrative Course Medical decision making 56-year-old male with chronic back pain on chronic opiates presents with new pain from new kidney stone vomitus or from hospital yesterday with no new pain medication. Improved here. We'll check screening labs. Recommend supportive treatment. Diagnosis Primary Impression: Ureterolithiasis Additional Instructions: Take Naprosyn as prescribed. Take hydromorphone in addition to her current pain medications for pain. Use Zofran if needed for nausea or vomiting. Follow up with her primary care physician on Javed. Return to the emergency department for any new or worsening symptoms. Med/Other Pt SpecificInfo: Prescription(s) given Scripts Ondansetron Odt (Zofran Odt)4 Mg Tab4 Mg SL Q8HR PRN (Nausea/Vomiting) #15 TAB May substitute non-ODT form. Prov:Roberto Canchola MD 06/15/16 Hydromorphone 2 Mg Tab1-2 Tab PO Q4H PRN (PAIN) #20 TAB Ref 0 Prov:Roberto Canchola MD 06/15/16 Naproxen (Naprosyn)500 Mg Eeg605 Mg PO BID PRN (PAIN SCALE 1 TO 10) #20 TAB Prov:Roberto Canchola MD 06/15/16 Disposition: 01 DISCHARGE HOME Condition: Stable Roberto Canchola MD Jun 15, 2016 10:42
--- NOTE | 2016-06-15 11:20 | RADRPT ---
EXAM DATE/TIME: 06/15/2016 10:14 [place] COMPARISON: ABDOMEN KUB ONLY, October 20, 2012, 7:57. INDICATIONS: Left side abdominal pain from kidney stones. MEDICAL HISTORY: Hypertension. Renal calculi. Umbilical hernia SURGICAL HISTORY: Appendectomy. Hernia repair ENCOUNTER: Initial ACUITY: 4 - 6 days PAIN SCORE: 8/10 LOCATION: Left abdomen FINDINGS: I do not see any renal calculi. Previous lumbar fusion is evident. Moderate stool is seen throughou t the colon. Minimal small bowel gas is seen in the right lower quadrant. CONCLUSION: Negative for renal stone. Matthew Rordigez MD FACR on June 15, 2016 at 10:55 Board Certified Radiologist. This report was verified electronically.
== END 2016-06-15 11:01 | disposition home or self-care (01) ==
LOC: NEPA 09:05
DX: N20.1 Calculus of ureter (principal); E78.00 Pure hypercholesterolemia, unspecified; I10 Essential (primary) hypertension; Z79.891 Long term (current) use of opiate analgesic
CPT/HCPCS: 74000; 80048; 85025; 96374; 96375; 99284; J1170; J1885

== ENCOUNTER → 2016-06-23 | Outpatient (CLI) | payer OTHER ==
[~2016-06-23] MED LIST changes: +HYDR2TAB PO; +NAPR500 PO; -NAPR550T3 PO; +ZOFR4TAB3 SL
[2016-06-23 07:16] LABS: HEMATOCRIT 43.6 % (39.0-51.0); MEAN CORPUSCULAR HEMOGLOBIN 28.4 PG (27.0-34.0); MEAN CORPUSCULAR HGB CONC 33.4 % (32.0-36.0); PLATELET COUNT 350 TH/MM3 (150-450); RED BLOOD COUNT 5.13 MIL/MM3 (4.50-5.90); RED CELL DISTRIBUTION WIDTH 13.6 % (11.6-17.2); REVIEW FLAG FINAL; WHITE BLOOD COUNT 7.1 TH/MM3 (4.0-11.0)
[2016-06-23 07:59] LABS: BICARBONATE 29.4 MEQ/L (21.0-32.0); HDL CHOLESTEROL 35.8 MG/DL (40.0-60.0); INDIRECT BILIRUBIN 0.2 MG/DL (0.0-0.8); POTASSIUM 4.1 MEQ/L (3.5-5.1); TOTAL BILIRUBIN ADULT 0.3 MG/DL (0.2-1.0)
== END ==
LOC: CLAB 06:48
PROVIDERS: ATTEND Family Medicine
DX: E78.2 Mixed hyperlipidemia (principal); I10 Essential (primary) hypertension; E29.1 Testicular hypofunction; E53.8 Deficiency of other specified B group vitamins
CPT/HCPCS: 36415; 80048; 80061; 80076; 82607; 84153; 84403; 85027

== ENCOUNTER → 2016-07-17 | Day surgery (SDC) | payer MEDICARE ==
[~2016-07-17] MED LIST changes: +FUROSEMIDE 20 MG/2 ML VIAL ONE; +GENTAMICIN SULFATE 80 MG/2 ML VIAL ONE; +LACTATED RINGER'S 1000 ML INJ 1,000 ML ONE; +MIDAZOLAM HCL 2 MG/2 ML VIAL ONE; +PROPOFOL 100 MG/10 ML INJ IV ONE; +SODIUM CHLORIDE 0.9% 20 ML VIAL ONE; +SODIUM CHLORIDE 0.9% INJ 100 ML IV ONE
--- NOTE | 2016-07-17 16:10 | TN ---
cc: TAMIE MONAHAN M.D. DATE OF SURGERY: 07/17/2016 PREOPERATIVE DIAGNOSIS Left ureteral vesicle junction calculus (N20.1) POSTOPERATIVE DIAGNOSIS Left ureteral vesicle junction calculus (N20.1) PROCEDURE: Cystourethroscopy with holmium laser lithotripsy and stone basket manipulation (CPT code 77345) INDICATION Mr. Ley is a 56-year-old gentleman who failed trial of medical expulsive therapy presents now for definitive treatment findings were normal anterior urethra. 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 The ureteral orifice normal size, shape and position on the right effluxing clear urine on the left after a guidewire was placed There was purulent debris that was emitted also prior to this there was some small calcific debris located in the trigone and the remainder the bladder showed no mass lesions, diverticula, cellules or other abnormalities and was unremarkable. The ureteroscopic evaluation shows a dilated ureter to just a couple of centimeters prior to the ureteral vesicle junction with some induration from an approximately 3 mm oblong shaped stone which appeared to be lodged there. PROCEDURE Procedure as well as risks, benefits were explained to the patient. Informed consent was obtained the patient was taken major operative theater where he was placed in supine position. The patient was identified as well as the operative site. Goodell time-out was performed in standard fashion. At this time a 22.5 Beninese cystoscope with a 30 lens was inserted urethra and bladder with the above findings. Attention was directed old to the left ureteral orifice where a 0.035 inches hybrid guidewire was inserted under direct vision up the ureter under fluoroscopic guidance into the renal pelvis. After the guidewire was placed with minimal difficulty. A lobe. There is some purulent material was seen emerging from the ureteral orifice. At this time a second wire was placed and over that wire. After removing the cystoscope a semi rigid mini ureteroscope was placed in the and the wires were written into the distal ureter with the stone was identified. Photo documentation was obtained and using a 365 micron holmium laser fiber holmium laser lithotripsy was performed at about 4 joules with a stone pulverized into three or four fragments that were then individually basketed and removed using a zero tip nitinol basket. At that time the scope was placed all the way up to the proximal ureter and there is no additional stones or trauma identified. There was a mild amount of hematuria urine since the patient had been on aspirin therapy and but otherwise no significant trauma to the ureter and a decision was made due to the patient's poor pain tolerance to not leave a stent. He was given some Lasix and the ureteroscope was removed and the cystoscope placed back in the bladder. We looked at ureteral orifice for a period of time and appeared to be effluxing some blood tinged urine and but no evidence of any clot formation. The stones that were basketed and dropped into the bladder were then evacuated and sent for crystal graphic analysis. The bladder was then decompressed the scope removed. The patient tolerated procedure well, reversed from anesthetic without difficulty and transferred to the recovery room in stable condition to be discharged home when criteria is met there are no obvious complications. MD YOON Sánchez/zayra /3:37 PM /3:45 PM
== END | disposition home or self-care (01) ==
LOC: ESDC 12:24
PROVIDERS: ATTEND Urology
DX: N20.1 Calculus of ureter (principal)
CPT/HCPCS: 00918; 52353; 76000; C1769; J1580; J1940; J2250; J3010; J7120